=== PATIENT | male | born 1990 | race Caucasian/White ===

== ENCOUNTER 2024-09-07 13:31 | Emergency (ER) | payer SELFPAY ==
[2024-09-07] MEDS ORDERED: LIDOCAINE 2% W/EPI 1:200,000 MPF 20 ML VIAL IM ONE (14:37)
--- NOTE | 2024-09-07 14:56 | ER ---
Nurse's Notes [facility] Name: Rubin Damon Age: 34 yrs Sex: Male : 1990 Arrival Date: 09/07/2024 Time: 13:31 Bed 10 Private MD: Diagnosis: Cellulitis of abdominal wall Presentation: 09/07 14:08 Chief complaint: Patient states: he noticed a wound/insect bite near where his pants ap3 button on 09/03/24. patient states it has been draining but it hasn't been getting better. patient reports his pain as a 6/10 on the pain scale. at this time. Coronavirus screen: At this time, the client does not indicate any symptoms associated with coronavirus-19. Ebola Screen: No symptoms or risks identified at this time. Initial Sepsis Screen: Does the patient meet any 2 criteria? No. Patient's initial sepsis screen is negative. Does the patient have a suspected source of infection? No. Patient's initial sepsis screen is negative. Risk Assessment: Do you want to hurt yourself or someone else? Patient reports no desire to harm self or others. Onset of symptoms was September 03, 2024. 14:08 Method Of Arrival: Ambulatory ap3 14:08 Acuity: ARMINDA 4 ap3 Triage Assessment: 14:10 General: Appears in no apparent distress. Behavior is calm, cooperative, appropriate ap3 for age. Pain: Complains of pain in suprapubic area. Neuro: Level of Consciousness is awake, alert, obeys commands, Oriented to person, place, time, situation, Appropriate for age. Cardiovascular: Patient's skin is warm and dry. Respiratory: Airway is patent Respiratory effort is even, unlabored, Respiratory pattern is regular, symmetrical. Derm: Wound noted suprapubic area. Historical: - Allergies: 14:10 No Known Allergies; ap3 - PMHx: 14:10 None; ap3 - Immunization history:: Client reports having NOT received the Covid vaccine. Last tetanus immunization: up to date Flu vaccine is not up to date. - Infectious Disease History:: Denies. - Social history:: Smoking status: Patient reports use of chewing tobacco. Screenin:11 [facility] ED Fall Risk Assessment (Adult) History of falling in the last 3 months, ap3 including since admission No falls in past 3 months (0 pts) Confusion or Disorientation No (0 pts) Intoxicated or Sedated No (0 pts) Impaired Gait No (0 pts) Mobility Assist Device Used No (0 pt) Altered Elimination No (0 pt) Score/Fall Risk Level 0 - 2 = Low Risk Oriented to surroundings, Maintained a safe environment, Educated pt \T\ family on fall prevention, incl call for assistance when getting out of bed, Assessed \T\ reinforced patient's understanding of fall precautions, Hourly rounding (assess needs \T\ fall precautionary measures) done, Used ambulatory aids as needed (educated on \T\ assisted with). Abuse screen: Denies threats or abuse. Nutritional screening: No deficits noted. Tuberculosis screening: No symptoms or risk factors identified. Assessment: 14:12 General: Appears in no apparent distress. comfortable, well groomed, well developed, kc6 Behavior is calm, cooperative, appropriate for age. Pain: Complains of pain in suprapubic area Pain currently is 6 out of 10 on a pain scale. Neuro: Level of Consciousness is awake, alert, obeys commands, Oriented to person, place, time, situation, Appropriate for age. Cardiovascular: Capillary refill < 3 seconds. Respiratory: Airway is patent Trachea midline Respiratory effort is even, unlabored, Respiratory pattern is regular, symmetrical. GI: No signs and/or symptoms were reported involving the gastrointestinal system. : No signs and/or symptoms were reported regarding the genitourinary system. EENT: No signs and/or symptoms were reported regarding the EENT system. Derm: Abscess located on suprapubic area is quarter sized, has no drainage, is hot to touch, is red, is raised. Musculoskeletal: No signs and/or symptoms reported regarding the musculoskeletal system. Circulation, motion, and sensation intact. Range of motion: intact in all extremities. Vital Signs: 14:08 BP 133 / 85; Pulse 82; Resp 18; Temp 98.2(O); Pulse Ox 98% ; Weight 108.86 kg; Height 6 ap3 ft. 2 in. ; Pain 6/10; 14:08 Body Mass Index 30.81 (108.86 kg, 187.96 cm) ap3 14:08 Pain Scale: Adult ap3 ED Course: 13:33 Patient arrived in ED. as 13:37 Andres Dumas PA is PHCP. cp 13:37 Nnamdi Rodriguez MD is Attending Physician. cp 14:10 Triage completed. ap3 14:11 Arm band placed on right wrist. ap3 14:12 Patient has correct armband on for positive identification. Bed in low position. Call kc6 light in reach. Side rails up X 1. Adult w/ patient. Pulse ox on. NIBP on. Door closed. Noise minimized. Lights dimmed. Pillow given. 14:12 Patient maintains SpO2 saturation greater than 95% on room air. kc6 14:13 Tomeka Aguilra, RN is Primary Nurse. kc6 15:00 Assist provider with I \T\ D: of an abscess on suprapubic area Set up I\T\D tray. Performed alena 6 by Andres HOBBS Dressing with 4X4s, tape Patient tolerated well. 15:11 Patient did not have IV access during this emergency room visit. kc6 Administered Medications: 14:57 Drug: Lidocaine Infiltration (2 %) 5 ml 5 ml Infiltration once; with epinephrine kc6 Volume: 5 ml; Route: Infiltration; 15:11 Follow up: Response: No adverse reaction; Pain is decreased kc6 15:08 Drug: Doxycycline PO 200 mg PO once Route: PO; kc6 15:11 Follow up: Response: No adverse reaction kc6 Medication: 15:11 VIS not applicable for this client. kc6 Outcome: 14:56 Discharge ordered by MD. cp 15:10 Discharged to home ambulatory, with family, with significant other, kc6 15:10 Condition: good 15:10 Discharge instructions given to patient, significant other, Instructed on discharge instructions, follow up and referral plans. medication usage, wound care, Demonstrated understanding of instructions, follow-up care, medications, wound care, Prescriptions given X 1, 15:11 Patient left the ED. kc6 Signatures: Melisa Dominguez Corey, PA PA cp Prokisch, Amanda RN RN ap3 Tomeka Aguilar, RN RN kc6
--- NOTE | 2024-09-07 14:56 | EDPHYS ---
Physician Documentation [facility] Name: Rubin Damon Age: 34 yrs Sex: Male : 1990 Arrival Date: 09/07/2024 Time: 13:31 Bed 10 Private MD: ED Physician Nnamdi Rodriguez HPI: 09/07 14:25 This 34 yrs old Male presents to ER via Ambulatory with complaints of Abscess. cp 14:25 The patient presents with an abscess of the suprapubic area. Description: erythematous, cp fluctuant. 14:25 Onset: The symptoms/episode began/occurred 4 day(s) ago. cp 14:25 Possible cause(s): insect sting. Associated signs and symptoms: Pertinent positives: cp discharge, erythema, Pertinent negatives: fever. Historical: - Allergies: 14:10 No Known Allergies; ap3 - PMHx: 14:10 None; ap3 - Immunization history:: Client reports having NOT received the Covid vaccine. Last tetanus immunization: up to date Flu vaccine is not up to date. - Infectious Disease History:: Denies. - Social history:: Smoking status: Patient reports use of chewing tobacco. ROS: 14:30 Skin: Positive for abscess, cellulitis, of the suprapubic area, cp 14:30 Constitutional: Negative for body aches, chills, fever, poor PO intake, cp 14:30 Abdomen/GI: Negative for nausea, vomiting, and diarrhea, 14:30 Neuro: Negative for altered mental status, weakness, 14:30 All other systems are negative, Exam: 14:33 Constitutional: The patient appears in no acute distress, alert, awake, non-toxic, well cp developed, well nourished, 14:33 Head/Face: Normocephalic, atraumatic. cp 14:33 Cardiovascular: Rate: normal, 14:33 Respiratory: the patient does not display signs of respiratory distress, Respirations: normal, no use of accessory muscles, no retractions, labored breathing, is not present, 14:33 Abdomen/GI: small boil noted lower mid abdomen/suprapubic area with mild swelling and surrounding erythema, Vital Signs: 14:08 BP 133 / 85; Pulse 82; Resp 18; Temp 98.2(O); Pulse Ox 98% ; Weight 108.86 kg; Height 6 ap3 ft. 2 in. ; Pain 6/10; 14:08 Body Mass Index 30.81 (108.86 kg, 187.96 cm) ap3 14:08 Pain Scale: Adult ap3 Procedures: 15:00 I \T\ D: Incision and drainage was performed for an abscess of the suprapubic area cp Prepped with Betadine, Anesthetized with ml's 2% Lidocaine with epinephrine. 3 ml's 2% Lidocaine with epinephrine. Drained small amount purulent fluid. Dressing: sterile 4x4 gauze, the patient tolerated the procedure well, using curved hemostats, area opened up. MDM: 14:13 Medical Screening Exam initiated cp 14:30 Differential diagnosis: abscess, cellulitis, insect bite. cp 14:56 Data reviewed: vital signs, nurses notes, and as a result, I will discharge patient. cp 14:56 I considered the following discharge prescriptions or medication management in the emergency department Medications were administered in the Emergency Department. See MAR. Counseling: I had a detailed discussion with the patient and/or guardian regarding the historical points, exam findings, and any diagnostic results supporting the discharge/admit diagnosis, to return to the emergency department if symptoms worsen or persist or if there are any questions or concerns that arise at home. Response to treatment: the patient's symptoms have mildly improved after treatment, and as a result, I will discharge patient. 09/07 14:22 Order name: I\T\D Setup; Complete Time: 14:41 cp Administered Medications: 14:57 Drug: Lidocaine Infiltration (2 %) 5 ml 5 ml Infiltration once; with epinephrine kc6 Volume: 5 ml; Route: Infiltration; 15:11 Follow up: Response: No adverse reaction; Pain is decreased kc6 15:08 Drug: Doxycycline PO 200 mg PO once Route: PO; kc6 15:11 Follow up: Response: No adverse reaction kc6 Disposition: 09/08 10:35 Chart complete. cp Disposition Summary: 09/07/24 14:56 Discharge Ordered Notes: Location: Home cp Problem: new cp Symptoms: have improved cp Condition: Stable cp Diagnosis - Cellulitis of abdominal wall cp Followup: cp - With: Private Physician - When: 2 - 3 days - Reason: Worsening of condition Discharge Instructions: - Discharge Summary Sheet cp - Cellulitis, Adult cp Forms: - Medication Reconciliation Form cp - Antibiotic Education cp - Prescription Opioid Use cp - Patient Portal Instructions cp - Leadership Thank You Letter cp Prescriptions: - Doxycycline Hyclate 100 mg Oral Tablet - take 1 tablet ORAL route every 12 hours; 20 tablet; Refills: 0, Product cp Selection Permitted Addendum: 20:23 I was immediately available for consultation during this patient's visit. I did not e c2 personally see the patient or discuss the patient with the BHAVNA. . Signatures: Andres Dumas PA PA cp Prokisch, Amanda, RN RN ap3 Tomeka Aguilar RN RN kc6 Nnamdi Rodriguez MD MD ec2 Corrections: (The following items were deleted from the chart) 10:34 09/07 17:00 I \T\ D: Incision and drainage was performed for an abscess of the suprapubic cp area Prepped with Betadine, Anesthetized with ml's 2% Lidocaine with epinephrine. 3 ml's 2% Lidocaine with epinephrine. Drained small amount purulent fluid. Dressing: sterile 4x4 gauze, the patient tolerated the procedure well, using curved hemostats, area opened up. cp
[2024-09-07] MEDS ORDERED: DOXYCYCLINE 100 MG CAP PO ONE (15:02)
[2024-09-07 15:28] VITALS: BP 133/85; TEMP 98.2; O2SAT 98
== END 2024-09-07 15:11 | disposition home or self-care (01) ==
LOC: ER 13:31
PROC: 0H97XZZ Drainage of Abdomen Skin, External Approach (ICD-10-PCS; principal; 2024-09-07)
DX: L03.311 Cellulitis of abdominal wall (principal)
CPT/HCPCS: 99284